=== PATIENT | female | born 1980 | race Caucasian/White ===

== ENCOUNTER 2017-12-25 10:32 | Outpatient (CLI) | payer BC ==
[~2017-12-25 10:32] MED LIST: Gadobenate Dimeglumine 529 MG/1 ML (20ML VIAL) ONE
--- NOTE | 2017-12-25 12:56 | MRI ---
MRI OF THE ABDOMEN WITHOUT AND WITH CONTRAST: COMPARISON: None. History Left lower quadrant abdominal pain under the ribs for years. The patient has an autoimmune disease. TECHNIQUE: Multiplanar, multisequence MR images were obtained of the abdomen without and with IV contrast. FINDINGS: There is a tiny nonenhancing focus of high T2 signal in the anterior aspect of the liver measuring 4 mm in size which represents a simple cyst. The gallbladder, kidneys, adrenal glands, spleen, and sanchez creas are unremarkable. No free fluid is seen in the abdomen. No abdominal adenopathy is seen. No abnormal enhancement is seen on this examination. No marrow signal abnormality is seen. The visualized inferior thorax is unremarkable. IMPRESSION: 1. No evidence of significant intraabdominal/pelvic abnormality. 2. Tiny small hepatic cyst. POS: [facility]
== END 2017-12-25 10:33 | disposition home or self-care (01) ==
LOC: SCSMRI 10:32
PROVIDERS: ATTEND Internal Medicine Gastroenterology
DX: R10.12 Left upper quadrant pain (principal); D89.89 Other specified disorders involving the immune mechanism, not elsewhere classified; K92.1 Melena; K58.9 Irritable bowel syndrome, unspecified; K76.89 Other specified diseases of liver
CPT/HCPCS: 74183; A9579